=== PATIENT | male | born 1940 | race Caucasian/White ===

== ENCOUNTER → 2016-12-25 | Day surgery (SDC) | payer MEDICARE, OTHER ==
[~2016-12-25] VITALS: Ht 175.3 cm; Wt 91.4 kg
[2016-12-25 07:32] LABS: HCT 45.2 % (42.0-52.0); HGB 15.2 g/dl (13.2-18.0); MCH 30.2 pg (25.0-31.0); MCHC 33.6 g/dL (32.0-36.0); MCV 89.7 fL (78.0-100.0); MPV 9.2 fL (6.0-9.5); RBC 5.04 M/uL (4.70-6.00); RDW 13.2 % (11.5-14.0); WBC 4.3 K/uL (4.0-10.5)
[2016-12-25 07:57] LABS: ALBUMIN 4.1 g/dL (3.4-4.8); BILIRUBIN - TOTAL 0.7 mg/dL (0.1-1.0); CREATININE 1.2 mg/dL (0.7-1.2); GLOBULIN (CALCULATION) 3.3 g/dL (2.2-4.2); POTASSIUM 3.8 mmol/L (3.5-5.1); TOTAL PROTEIN 7.4 g/dL (6.4-8.3)
== END | disposition home or self-care (01) ==
LOC: FAS 07:40
PROVIDERS: Surgery
DX: C20 Malignant neoplasm of rectum (principal); K21.0 Gastro-esophageal reflux disease with esophagitis; K29.50 Unspecified chronic gastritis without bleeding; T18.128A Food in esophagus causing other injury, initial encounter; K62.1 Rectal polyp; N40.0 Benign prostatic hyperplasia without lower urinary tract symptoms; K44.9 Diaphragmatic hernia without obstruction or gangrene; Z79.899 Other long term (current) drug therapy; I10 Essential (primary) hypertension; J30.9 Allergic rhinitis, unspecified; K57.30 Diverticulosis of large intestine without perforation or abscess without bleeding; Z98.890 Other specified postprocedural states; N42.9 Disorder of prostate, unspecified; Z90.89 Acquired absence of other organs; Z98.49 Cataract extraction status, unspecified eye; R63.4 Abnormal weight loss; K92.1 Melena
CPT/HCPCS: 36415; 76705; 80053; 88305; 88312; J2704

== ENCOUNTER → 2017-02-14 | Day surgery (SDC) | payer MEDICARE, OTHER ==
[~2017-02-14] VITALS: Ht 175.3 cm; Wt 85.3 kg
== END | disposition home or self-care (01) ==
LOC: FAS 12:56
DX: C20 Malignant neoplasm of rectum (principal); K57.30 Diverticulosis of large intestine without perforation or abscess without bleeding; K64.9 Unspecified hemorrhoids; I87.2 Venous insufficiency (chronic) (peripheral); I10 Essential (primary) hypertension; E78.00 Pure hypercholesterolemia, unspecified; M19.90 Unspecified osteoarthritis, unspecified site; N40.0 Benign prostatic hyperplasia without lower urinary tract symptoms; Z85.51 Personal history of malignant neoplasm of bladder; Z90.89 Acquired absence of other organs; Z98.49 Cataract extraction status, unspecified eye; Z79.899 Other long term (current) drug therapy; Z98.890 Other specified postprocedural states
CPT/HCPCS: 71010; 76000; C1788; J1644; J2405; J2704; J3010

== ENCOUNTER 2017-03-28 10:43 | Emergency (ER) | payer MEDICARE, OTHER ==
[2017-03-28 11:54] LABS: INR 1.29 (0.9-1.2); PROTHROMBIN TIME 15.6 SECONDS (11.7-14.0); PTT 31.7 SECONDS (23.2-31.4)
[2017-03-28 12:02] LABS: HCT 39.8 % (42.0-52.0); HGB 13.5 g/dl (13.2-18.0); MCHC 33.9 g/dL (32.0-36.0); MCV 88.4 fL (78.0-100.0); PLT 80 K/uL (150-400)
[2017-03-28 12:05] LABS: ALBUMIN 2.9 g/dL (3.4-4.8); BILIRUBIN - TOTAL 1.8 mg/dL (0.1-1.0); CREATININE 1.1 mg/dL (0.7-1.2); GLOBULIN (CALCULATION) 3.5 g/dL (2.2-4.2); LACTIC ACID 1.6 mmol/L (0.5-2.2); POTASSIUM 3.5 mmol/L (3.5-5.1); TOTAL PROTEIN 6.4 g/dL (6.4-8.3)
[2017-03-28 12:06] LABS: WBC 1.6 K/uL (4.0-10.5)
[2017-03-28 13:19] LABS: BILIRUBIN NEGATIVE (NEGATIVE); BLOOD 2+ Ery/uL (NEGATIVE); CLARITY CLEAR (CLEAR); COLOR YELLOW (YELLOW); GLUCOSE (U) NORMAL (NORMAL); KETONE (U) 1+ (SMALL) mg/dL (NEGATIVE); LEUKOCYTES NEGATIVE Leu/uL (NEGATIVE); NITRITE NEGATIVE (NEGATIVE); PROTEIN 1+ mg/dL (NEGATIVE); SPECIFIC GRAVITY >=1.030 (1.001-1.030); UROBILINOGEN 0.2 mg/dL (0.2-1.0); pH 5.5 (5.0-9.0)
[2017-03-28 13:27] LABS: URINARY RBC 20-50
[2017-03-28 13:28] LABS: BACTERIA TRACE; GRANULAR CASTS TRACE; SQUAMOUS EPITHELIAL CELLS RARE
[2017-03-28 13:30] LABS: MUCOUS TRACE; URINARY WBC RARE
[2017-03-28 15:52] LABS: BASOPHIL 0 % (0-2); EOSINOPHIL 0.6 % (0-7); LYMPHOCYTE 8.2 % (15-48); MONOCYTE 0.6 % (0-12); MPV 10.2 fL (6.0-9.5); NEUTROPHIL 90.6 % (41-80); RDW 14.1 % (11.5-14.0)
== END 2017-03-28 17:48 | disposition other institution (70) ==
LOC: FER 10:43
PROVIDERS: Emergency Medicine
DX: T21.26XA Burn of second degree of male genital region, initial encounter (principal); D70.9 Neutropenia, unspecified; C20 Malignant neoplasm of rectum; R82.90 Unspecified abnormal findings in urine; Z79.899 Other long term (current) drug therapy; Y63.2 Overdose of radiation given during therapy; Y78.1 Therapeutic (nonsurgical) and rehabilitative radiological devices associated with adverse incidents
CPT/HCPCS: 36415; 71010; 80053; 81001; 83605; 85025; 85610; 85730; 87040; 87088; J2270; J2405